=== PATIENT | male | born 1945 | race Caucasian/White ===

== ENCOUNTER → 2017-10-17 | Outpatient (CLI) | payer OTHER ==
[~2017-10-17] VITALS: Ht 175.3 cm; Wt 72.6 kg
[~2017-10-17] MED LIST: CENTRUM SILVER1 EAC2 PO; CRESTOR20 MG PO; FISH OIL 1,001000 M2 PO; VITAMIN D1000 UNI1 PO
--- NOTE | ~2017-10-17 | P ---
[facility] [place] [address] PROCEDURE REPORT Name: FILIBERTO REDDY Room #: REG [facility]#: [id number] Admission: 10/17/17 Attend Phys: Earnest Pitts MD Discharge: Date of : 47 Report #: [id number] THIS REPORT FOR: //name// CC: Candy Pitts BRIEF HISTORY: The patient is a 72-year-old male for high risk screening colonoscopy. He has a previous history of colon polyps more than 10 years ago. PREOPERATIVE DIAGNOSIS: High risk screening colonoscopy due to history of colon polyps. POSTOPERATIVE DIAGNOSIS: Multiple colonic polyps. MEDICATIONS: Deep sedation with propofol per anesthesia. SPECIMENS: 1. Polyp, hepatic flexure. 2. Polyp, mid ascending colon. 3. Polyp, proximal transverse colon. 4. Polyp, distal colon. 5. Polyps times 2 at 70 cm. ESTIMATED BLOOD LOSS: 3 mL. PROCEDURE: Colonoscopy to cecum and terminal ileum with snare polypectomy and biopsy. FINDINGS: Prior to propofol sedation, the procedure of colonoscopy discussed with the patient as well as potential risks, benefits, and complications. He indicates he understands and desires to proceed. With the patient in left lateral decubitus position, digital examination was completed, which revealed no abnormalities. Subsequently, the [employer] video colonoscope was introduced into the rectum and under direct vision to the cecum. Done with minimal difficulty. The cecum was identified by the ileocecal valve and the appendiceal orifice. I was able to visualize the distal segment of terminal ileum, which was examined and noted to be unremarkable. At that point, scope was withdrawn and careful circumferential views obtained. Upon slow withdrawal of the scope, the prep was excellent. The mucosa was within normal limits, normal vascular pattern, and normal light reflex. As we withdrew the scope, he was found to have a number of polyps. There was a diminutive polyp in the mid ascending colon removed by biopsy. At the hepatic flexure, a 5-mm polyp was seen and removed by cold snare polypectomy. In the proximal transverse colon, a 1-cm polyp on a short stalk was seen and removed by cold snare polypectomy. In the distal transverse colon, a 5-mm polyp was removed by cold [facility] [address] [place] [address] PROCEDURE REPORT Name: FILIBERTO REDDY Room #: [facility]#: [id number] Admission: 10/17/17 Attend Phys: Earnest Pitts MD Discharge: Date of : 47 Report #: [id number] snare polypectomy. At 70 cm, a 5-mm polyp was removed by cold snare polypectomy and a diminutive polyp was seen and removed by biopsy. The scope was further withdrawn and no additional polyps were seen. The scope was withdrawn in the rectum and upon retroflexion, no abnormalities were seen. Scope was withdrawn. The patient tolerated the procedure well. CONDITION OF THE PATIENT UPON DISCHARGE: Following procedure, the patient drowsy, aroused, conversant and will be discharged home when fully ambulatory. INSTRUCTIONS TO THE PATIENT AND FAMILY AT THE TIME OF DISCHARGE: We will follow up on the path of the polyps. However, due to the size and numbers of the polyps, I suggest he should return in 3 years for a high risk screening colonoscopy. He will otherwise return to care of Dr. Canyd Yoo and return to see me as needed. Last colonoscopy was more than 10 years ago. Withdrawal time from the cecum was 20 minutes and 25 seconds. <ELECTRONICALLY SIGNED> By: Earnest Pitts MD 10/18/17 [id number] Earnest Pitts MD /nt
--- NOTE | ~2017-10-17 | S ---
[facility] [address] [place] [address] SURGICAL PATH RPT PROCEDURE Name: FILIBERTO REDDY Room #: REG [facility]#: [id number] Admission: 10/17/17 Date of : 47 Discharge: Report #: [id number] Path Case #: [id number] PATHOLOGY REPORT COLLECTION DATE: 10/17/2017 RECEIVED DATE: 10/17/2017 SUBMITTING PHYS: Dr. Earnest Pitts OTHER PHYS: Dr. Candy Yoo SPECIMEN(S) RECEIVED: A.Gastritis B.Distal esophagus C.Proximal esophagus D.Hepatic flexure polyp E.Mid ascending colon polyp F.Proximal transverse colon polyp G.Distal transverse colon polyp H.Colon polyp at 70 cm x2 * * * * * * * * * * * * FINAL DIAGNOSIS: A. Gastric "gastric biopsy": - Mild chronic reactive gastropathy. - The immunoperoxidase stain for Helicobacter pylori is negative. - There is no evidence of atypia or malignancy. B. Squamous and glandular mucosa "distal esophageal biopsy": - Mild esophagitis with reactive squamous mucosa. - There is no evidence of goblet cell metaplasia, dysplasia or malignancy. C. Squamous mucosa "proximal esophagus biopsy": - Mild esophagitis with reactive squamous mucosa. - There is no evidence of goblet cell metaplasia, dysplasia or malignancy. D. Colonic mucosa "hepatic flexure polyp biopsy: - Fragments of tubular adenoma. - There is no evidence of high grade dysplasia or malignancy. E. Colonic mucosa "mid ascending colon polyp biopsy": - Fragments of tubular adenoma. - There is no evidence of high grade dysplasia or malignancy. F. Colonic mucosa "proximal transverse colon polyp biopsy": - Fragments of tubular adenoma. - There is no evidence of high grade dysplasia or malignancy. G. Colonic mucosa "distal transverse colon polyp biopsy": - Fragments of tubular adenoma. - There is no evidence of high grade dysplasia or malignancy. H. Colonic mucosa "colon polyp at 70 cm x2": - Fragments of tubular adenoma. [facility] [address] [place] [address] SURGICAL PATH RPT PROCEDURE Name: FILIBERTO REDDY Room #: [facility]#: [id number] Admission: 10/17/17 Date of : 47 Discharge: Report #: [id number] Path Case #: [id number] - There is no evidence of high grade dysplasia or malignancy. (SHA:raymundo; 10/18/2017) PATHOLOGIST: Jose L Fritz M.D. REPORT ELECTRONICALLY SIGNED BY: Jose L Fritz M.D. DATE/TIME: 10/18/2017 13:37 * * * * * * * * * * * * GROSS PATHOLOGY: A. The specimen is received in formalin, labeled "Said Maycol and biopsy gastritis", are several mancuso soft tissue the aggregate measure 0.5 x 0.5 x 0.1 cm, entirely submitted in A1. B. The specimen is received in formalin, labeled "Said Adeliamolucero and biopsy of esophagus rule out esophagitis", are several mancuso-sylvester soft tissue the aggregate measures 0.5 x 0.3 x 0.1 cm, entirely submitted in B1. C. The specimen is received in formalin, labeled "Said Mahmoud and biopsy of proximal esophagus rule out esophagitis", are multiple mancuso soft tissue the anterior and measures 1.0 x 0.5 x 0.1 cm, entirely submitted in C1. D. The specimen is received in formalin, labeled "Said Mahmoud and polyp at hepatic flexure", is a mancuso polypoid soft tissue 0.7 x 0.4 cm, inked black, bisected and entirely submitted in D1. E. The specimen is received in formalin, labeled "Said Mahmoud and polyp at mid ascending colon", are two mancuso polypoid soft tissue 0.3 and a 0.5 cm in greatest dimension, entirely submitted in E1. F. The specimen is received in formalin, labeled "Said Mahmoud and polyp at transverse colon", is a friable polypoid soft tissue 1.3 x 0.5 x 0.3 cm, inked black bisected and entirely submitted in F1. G. The specimen is received in formalin, labeled "Said Mahmoud and polyp at distal transverse colon", is a mancuso polypoid soft tissue 0.8 x 0.3, inked black, bisected and entirely submitted in G1. H. The specimen is received in formalin, labeled "Said Mahmoud and polyp 2 at 70 cm", are two mancuso polypoid soft tissue 0.2 cm and 0.4 cm in greatest dimension, entirely submitted in H1. (SWS; 10/17/2017) CLINICAL HISTORY: Screening, GERD, dysphagia Gastritis, probable distal esophagitis, dysphagia, colon polyps INITIAL CPT CODE(S): A; 26168, 05624 B; 02458 C; 40857 D; [address] [address] SURGICAL PATH RPT PROCEDURE Name: RUTH ANNFILIBERTO REID Shaista Room #: REG [facility]#: [id number] Admission: 10/17/17 Date of : 47 Discharge: Report #: [id number] Path Case #: [id number] E; [id number] F; [id number] G; [id number] H; [id number] Professional services performed by [facility] at [facility] [address], [place] [address] Technical services performed by [facility] at [address] [place] [address], [place] [address]. [facility] [address] [place] [address] PHONE: [phone] DIRECTOR: Bobby Blake M.D. * * * END OF REPORT * * *
--- NOTE | ~2017-10-17 | P ---
[facility] [place] [address] [place] [address] PROCEDURE REPORT Name: FILIBERTO REDDY Room #: REG [facility]#: [id number] Admission: 10/17/17 Attend Phys: Earnest Pitts MD Discharge: Date of : 47 Report #: [id number] THIS REPORT FOR: //name// CC: Candy Pitts BRIEF HISTORY: The patient is a 72-year-old male who has had reflux symptoms for years. He also describes symptoms and he questions the possibility of a Zenker's diverticulum. This may represent intermittent dysphagia. PREOPERATIVE DIAGNOSES: Reflux and dysphagia. POSTOPERATIVE DIAGNOSES: 1. Diffuse gastritis, nonerosive. 2. Distal esophagitis. 3. Dysphagia. SPECIMENS: 1. Biopsies of antrum, body of the stomach, and gastritis. 2. Biopsies of distal esophagus, rule out esophagitis. 3. Biopsies of proximal esophagus, rule out esophagitis. MEDICATIONS: Deep sedation with propofol per anesthesia. ESTIMATED BLOOD LOSS: 3 mL. PROCEDURE: EGD with biopsy and Atkinson dilation. FINDINGS: Prior to propofol sedation, the procedure of upper endoscopy discussed with the patient as well as potential risks, benefits, and complications. He indicates he understands and desires to proceed. With the patient in left lateral decubitus position, the [employer] video endoscope was inserted in the cervical esophagus under direct vision without difficulty. Examination of this organ through its entire length revealed normal esophageal mucosa in the proximal esophagus. As the scope was advanced, there was linear erythema, but not definite erosive changes in the distal esophagus. Findings were suggestive of esophagitis. The squamocolumnar junction was identified and appeared to be intact. It was in an appropriate position. There was evidence no Wright mucosa, strictures, mass lesions, or hiatus hernia. Scope was advanced in the stomach, was examined on end view as well as retroflexed views. There was erythema in the antrum of stomach and slight nodular changes in the body and multiple biopsies were obtained to evaluate for gastritis. No ulcers or mass lesions were seen. Upon retroflexion, no mass lesions were seen. A hiatus hernia was not seen. The pylorus, duodenal bulb, postbulbar sweep were inspected and noted to be unremarkable. The duodenal papilla was seen and noted [address] [address] PROCEDURE REPORT Name: FILIBERTO REDDY Room #: REG [facility]#: [id number] Admission: 10/17/17 Attend Phys: Earnest Pitts MD Discharge: Date of : 47 Report #: [id number] to be normal. At that point, the scope was slowly withdrawn and careful circumferential views were obtained. Biopsies were obtained of the gastritis as well as the esophagus. In addition, the patient was concerning of a Zenker's diverticulum. I could find no endoscopic evidence of Zenker diverticulum. I would wonder if he has a proximal esophageal ring, it was dilated empirically with passage of a 50-Vincentian Atkinson dilator without resistance. CONDITION OF THE PATIENT UPON DISCHARGE: Following procedure, the patient drowsy. He was then prepared for colonoscopy. INSTRUCTIONS TO THE PATIENT AND FAMILY AT THE TIME OF DISCHARGE: We will follow up on biopsies obtained today. We will have him take omeprazole 20 mg daily for 6-8 weeks and then as needed thereafter. We will make further recommendations after review of the biopsies. If he continues to have concerns about his Zenker, a barium swallow at a later date may be a consideration. <ELECTRONICALLY SIGNED> By: Earnest Pitts MD 10/18/171926 9 3 Earnest Pitts MD /nt
== END | disposition home or self-care (01) ==
LOC: GI 06:23
DX: Z09 Encounter for follow-up examination after completed treatment for conditions other than malignant neoplasm (principal); Z86.010 Personal history of colon polyps; D12.2 Benign neoplasm of ascending colon; D12.3 Benign neoplasm of transverse colon; D12.4 Benign neoplasm of descending colon; K29.70 Gastritis, unspecified, without bleeding; K20.9 Esophagitis, unspecified; K21.9 Gastro-esophageal reflux disease without esophagitis; E78.00 Pure hypercholesterolemia, unspecified
CPT/HCPCS: 62110; 62900